=== PATIENT | male | born 1950 | race Caucasian/White ===

== ENCOUNTER 2017-08-03 16:05 | Emergency (ER) | payer MEDICAID ==
[~2017-08-03] VITALS: Ht 175.3 cm; Wt 90.7 kg
[2017-08-03 16:27] VITALS: Ht 175.3 cm; Wt 90.7 kg
[2017-08-03 17:00] VITALS: BP 141/95
== END 2017-08-03 17:00 | disposition home or self-care (01) ==
LOC: ED 16:05
DX: M54.2 Cervicalgia (principal); R11.0 Nausea; V49.9XXA Car occupant (driver) (passenger) injured in unspecified traffic accident, initial encounter; Y93.89 Activity, other specified; Y92.89 Other specified places as the place of occurrence of the external cause; Y99.8 Other external cause status